=== PATIENT | male | born 1995 | race Caucasian/White ===

== ENCOUNTER 2018-09-30 17:30 | Emergency (ER) | payer BC ==
--- NOTE | 2018-09-30 18:50 | EDM.PDOC ---
ED HPI GENERAL MEDICAL PROBLEM - General Chief Complaint: Chest Pain Stated Complaint: L CHEST AND SHOULDER PAIN Time Seen by Provider: 09/30/18 17:35 Source of Information: Reports: Patient, Family History Limitations: Reports: No Limitations - History of Present Illness INITIAL COMMENTS - FREE TEXT/NARRATIVE: The patient was bench pressing about 400pounds when his left arm gave out and he had severe pain. He can move his arm but he has pain with it. He has pain to the anterior shoulder into the left pectoralis muscle. He was able to get the weight off with not much problems. He has no other injuries. Onset: Sudden Duration: Minutes: Location: Reports: Chest, Upper Extremity, Left Quality: Reports: Sharp Severity: Severe Improves with: Reports: Immobilization Worsens with: Reports: Movement Associated Symptoms: Reports: Chest Pain. Denies: Cough, Fever/Chills, Headaches, Nausea/Vomiting, Shortness of Breath Right Chest Pain Score (Numeric/FACES): 9 - Related Data Allergies Allergy/AdvReac Type Severity Reaction Status Date / Time No Known Allergies Allergy Verified 09/30/18 17:40 Home Meds: Home Meds . [No Known Home Meds] 09/30/18 [History] Past Medical History - Past Health History Medical/Surgical History: Denies Medical/Surgical History Social & Family History - Tobacco Use Smoking Status *Q: Current Every Day Smoker Years of Tobacco use: 4 Packs/Tins Daily: 0.2 - Caffeine Use Caffeine Use: Reports: Coffee, Energy Drinks - Recreational Drug Use Recreational Drug Use: No ED ROS GENERAL - Review of Systems Review Of Systems: See Below Constitutional: Reports: No Symptoms HEENT: Reports: No Symptoms Respiratory: Reports: No Symptoms Cardiovascular: Reports: Chest Pain (Left pectoralis) Endocrine: Reports: No Symptoms GI/Abdominal: Reports: No Symptoms : Reports: No Symptoms Musculoskeletal: Reports: Shoulder Pain (left anterior shoulder) ED EXAM, GENERAL - Physical Exam Exam: See Below Exam Limited By: No Limitations General Appearance: Alert, No Apparent Distress Ears: Normal External Exam Nose: Normal Inspection Head: Atraumatic, Normocephalic Neck: Normal Inspection Respiratory/Chest: No Respiratory Distress, Lungs Clear, Normal Breath Sounds Cardiovascular: Regular Rate, Rhythm, No Edema, No Murmur, Other (Pain upon palpation to the left lateral chest with some pain to the anterior shoulder no deformity noted) GI/Abdominal: Soft, Non-Tender, No Organomegaly, No Mass Back Exam: Normal Inspection Extremities: Other (Mild pain to the anterior left shoulder. He can move his shoulder but there is pain more to the left pectoralis.) Course - Vital Signs Last Recorded V/S: Last Vital Signs Temp 96.6 F 09/30/18 17:37 Pulse 96 09/30/18 17:37 Resp 20 09/30/18 17:37 BP 177/105 H 09/30/18 17:37 Pulse Ox 100 09/30/18 17:37 - Orders/Labs/Meds Orders: Active Orders 24 hr Category Date Time Status Shoulder Comp Lt [CR] Stat Exams 09/30/18 17:55 Taken - Re-Assessments/Exams Free Text/Narrative Re-Assessment/Exam: 09/30/18 18:49 I ordered an x-ray of his left shoulder and it showed no acute changes. I called Dr Marcano and he wanted me to order an MRI. I will also give him a sling and something for pain. Departure - Departure Time of Disposition: 18:50 Disposition: Home, Self-Care 01 Condition: Good Clinical Impression: Pectoralis muscle strain Qualifiers: Encounter type: initial encounter Qualified Code(s): S29.011A - Strain of muscle and tendon of front wall of thorax, initial encounter Referrals: Ana Stein NP [Primary Care Provider] - Teodoro Marcano MD [Physician] - 1 Week Additional Instructions: Ice the area that hurts. Take motrin or tylenol for pain. If that does not help take some hydrocodone. I have ordered an MRI. Someone in our radiologist department will call you with a time. Please return if you are worse. - My Orders Last 24 Hours: My Active Orders 09/30/18 17:55 Shoulder Comp Lt [CR] Stat - Assessment/Plan Last 24 Hours: My Active Orders 09/30/18 17:55 Shoulder Comp Lt [CR] Stat
--- NOTE | 2018-10-01 08:18 | CR ---
Left shoulder: Four views of the left shoulder were obtained. Comparison: No prior shoulder exam. Acromioclavicular and glenohumeral joints are within normal limits. No fracture, dislocation or other bony abnormality is seen. Impression: 1. No abnormality is appreciated on left shoulder study. Diagnostic code #1
== END 2018-09-30 19:08 | disposition home or self-care (01) ==
LOC: JD.ED 17:30
DX: S29.011A Strain of muscle and tendon of front wall of thorax, initial encounter (principal); F17.210 Nicotine dependence, cigarettes, uncomplicated; X50.0XXA Overexertion from strenuous movement or load, initial encounter
CPT/HCPCS: 73030-26-LT; 73030-LT; 99283-25